=== PATIENT | male | born 1985 | race Two or more races ===

== ENCOUNTER 2019-07-07 17:28 | Emergency (ER) | payer MEDICAID ==
[~2019-07-07] VITALS: Ht 172.7 cm; Wt 65.0 kg
[2019-07-07] MEDS ORDERED: ALBUTEROL (0.083%) 2.5MG/3ML NEB HHN STA (18:22)
[2019-07-07] MEDS ORDERED: ACETAMINOPHEN 500MG TABLET PO ONE (18:30)
[2019-07-07 21:21] VITALS: BP 119/81
== END 2019-07-07 21:21 | disposition home or self-care (01) ==
LOC: ER 17:28
DX: B34.9 Viral infection, unspecified (principal)
CPT/HCPCS: 71045; 87804; 99284; J7611